=== PATIENT | male | born 1990 | race Two or more races ===

== ENCOUNTER 2025-02-11 14:43 | Emergency (ER) | payer SELFPAY ==
[2025-02-11 14:45] VITALS: BP 105/71; PULSE 106; RESP 18; TEMP 36.7; O2SAT 97
[2025-02-11 14:49] VITALS: PULSE 88; RESP 16; O2SAT 98; BMI 30.3
--- NOTE | 2025-02-11 14:49 | EKG_ITS ---
[facility] Test Date: 2025-02-11 Pat Name: CINDY FARLEY Department: Room: - Gender: Male Floor Hand: : 1990 Requested By: ED Temporary Provider Order Number: [id number] Reading MD: ED Temporary Provider Measurements Intervals [place] Rate: 105 P: 64 WV: 170 QRS: 47 QRSD: 90 T: 40 QT: 338 QTc: 447 Interpretive Statements SINUS TACHYCARDIA ABNORMAL RHYTHM ECG No previous ECG available for comparison /store/S0/[id number]/ecg/[id number].pdf
--- NOTE | 2025-02-11 15:03 | XR_ITS ---
Examination: CT brain head without contrast. 2-D sagittal coronal reconstructions Date and time of exam:February 11, 2025, 1536 hours INDICATIONS: Patient found down unconscious today head pain CTDI: vol (mGy):54 DLP: (mGycm):183 Technique: Multiple CT axial sections of the brain have been obtained, 5 mm slice thickness. Contrast has not been administered. 2-D sagittal, coronal reconstructions have been obtained Low dose protocols were performed. One or more of the following dose reduction techniques were used; automated exposure control, adjustment of the mA and/or KV according to patient size, use of iterative reconstruction technique. Findings: No significant ventricular enlargement. Intra-axial or extra-axial hemorrhage density is not seen. No mass effect or midline shift Basal cisterns are not remarkable. Fourth ventricle is midline. Cranial vault intact. Impression: Negative for acute hemorrhage, mass effect or midline shift
--- NOTE | 2025-02-11 15:03 | XR_ITS ---
Examination: CT maxillofacial, without intravenous contrast. 2-D sagittal reconstructions. 3-D reconstructions. Date and time of exam:February 11, 2025 1536 hours INDICATIONS: Patient found down unconscious today facial pain CTDI: vol (mGy):18.3 DLP: (mGycm):387 Technique: Multiple axial images of maxillofacial region, 3.0 mm slice thickness. 2-D sagittal and coronal reconstructions. 3-D reconstructions. Low dose protocols were performed. One or more of the following dose reduction techniques were used; automated exposure control, adjustment of the mA and/or KV according to patient size, use of iterative reconstruction technique. Findings: Frontal bone intact Right nasal bone fracture which appears old but clinical correlation advised Orbital rims appear intact No depression zygomatic arches Maxilla mandible intact IMPRESSION: No acute facial fracture.
--- NOTE | 2025-02-11 15:03 | XR_ITS ---
Examination: CT cervical spine without contrast 2-D sagittal reconstructions 2-D coronal reconstructions 3-D reconstructions. Exam date and time:February 11, 2025, 1536 hours INDICATIONS: Patient found down unconscious today, neck pain CTDI:vol (mGy) 17.1 DLP: (mGycm) 429 Technique: Multiple 2 mm axial sections of the cervical spine have been obtained. The coronal and sagittal reconstructions have been obtained. 3-D reconstructions have been obtained. Low dose protocols were performed. One or more of the following dose reduction techniques were used; automated exposure control, adjustment of the mA and/or KV according to patient size, use of iterative reconstruction technique. Findings: Axial sections demonstrate intact base of the skull. C1 exhibit satisfactory relationship to the odontoid. No acute cervical vertebral body fracture seen. Alignment posterior spinous processes satisfactory. Impression: No acute cervical fracture.
--- NOTE | 2025-02-11 15:06 | PD.EDALCOH ---
ED Alcohol RME/HPI General Chief Complaint: Alcohol Stated Complaint: ETOH Time Seen by Provider: 02/11/25 14:53 Arrival date/time: 02/11/25 14:43 RME / HPI RME / HPI narrative: 34-year-old male patient with significant history of drug abuse, alcohol abuse, homelessness, was brought in by EMS after patient was found on the ground with some sign of facial injury. Patient is intoxicated, talking nonsense, does not know what happened. He is alert but obviously intoxicated. Patient had abrasion to the right side of face and abrasion to the lips. No vomiting noted. No other complaints noted. Related Data Allergies Allergy/AdvReac Type Severity Reaction Status Date / Time No Known Allergies Allergy Verified 02/11/25 16:59 Review of Systems Review of Systems Narrative Review of Systems: Review of system reviewed and within normal limits except mentioned in HPI ED Exam Narrative Physical exam: VITAL SIGNS: Reviewed. GENERAL APPEARANCE: Alert and interactive, follows commands, no acute distress, unkept HEAD AND FACE: Abrasions right side of face, right lip ENT: PERRL, pink conjunctivitis, eyelid no trauma, Mucous membrane moist. NECK: Supple, nontender, no nuchal rigidity. CHEST: No tenderness, no crepitus, no paradoxical movement, no retractions. LUNGS: Clear, well ventilated, symmetric, no rales, no wheezing, no ronchi, no stridor, good breath sounds bilaterally. HEART: Regular rate, regular rhythm, no murmur, no gallops. ABDOMEN: Soft, positive bowel sounds, nondistended, no guarding, nontender, no rebound, no masses, RECTAL: Deferred. GENITAL: Deferred. NEUROLOGICAL: Gross motor function intact sensory function intact, Appropriate for age. MUSCULOSKELETAL: low back nontender, full range of motion. EXTREMITIES: Nontender, full range of motion. SKIN: Color pink, dry, no rash, no lacerations, no abrasions, no contusions. LYMPHATICS: Deferred. Course Quality Measures none Orders Category Date Time Status 24 HR Medical Restraints Q2HR Care 02/11/25 16:20 Active EKG (ED ONLY) *Do not use* NOW Care 02/11/25 14:49 Completed Jolly [Urinary Catheter] QS Care 02/11/25 17:08 Active In and Out Catheter X1 Care 02/11/25 15:[address] cervical spine wo con Stat Exams 02/11/25 15:[address] cervical spine wo con Stat Exams 02/11/25 15:[address] facial bones wo con Stat Exams 02/11/25 15:[address] head/brain wo con Stat Exams 02/11/25 15:[address] head/brain wo con Stat Exams 02/11/25 15:57 Completed EKG (ED Only) Stat Exams 02/11/25 14:49 Draft Alcohol, Blood Medical Stat Lab 02/11/25 15:14 Completed CBC [CBC] Stat Lab 02/11/25 15:14 Completed CMP [Comprehensive Metabolic Panel] Stat Lab 02/11/25 15:14 Completed Drug Screen,Urine Stat Lab 02/11/25 15:00 Completed UA, C/S IF [Urinalysis, C/S if Indicated] Stat Lab 02/11/25 15:00 Completed Diazepam Inj [Valium Inj] Med 02/11/25 15:13 Discontinued 10 mg .ROUTE .STK-MED ONE Diazepam Inj [Valium Inj] Med 02/11/25 15:15 Discontinued 10 mg IVP X1 ONE DiphenhydrAMINE INJ [Benadryl Inj] Med 02/11/25 16:50 Discontinued 50 mg IVP X1 ONE Ringers Lactated 1000 ml [Lactated Ringers] 1,000 ml Med 02/11/25 15:04 Discontinued IV 999 mls/hr Ringers Lactated 1000 ml [Lactated Ringers] 1,000 ml Med 02/11/25 17:00 Discontinued IV 999 mls/hr Ringers Lactated 1000 ml [Lactated Ringers] 1,000 ml Med 02/11/25 17:00 Discontinued IV 999 mls/hr Ziprasidone Inj [Geodon Inj] Med 02/11/25 15:22 Discontinued 20 mg IM X1 ONE Ziprasidone Inj [Geodon Inj] Med 02/11/25 16:13 Discontinued 20 mg IM X1 ONE Vital Signs Vital signs: Vital Signs Temperature 98.1 F 02/11/25 14:45 Pulse Rate 106 H 02/11/25 14:45 Respiratory Rate 18 02/11/25 14:45 Blood Pressure 105/71 02/11/25 14:45 Pulse Oximetry (%) 97 02/11/25 14:45 Oxygen Delivery Method Room Air 02/11/25 14:45 Discharge Plan Plan Patient Disposition: HOME (Self Care) Patient condition on transfer: Stable Prescriptions/Referrals Referrals: No Primary/Family,Physician [Primary Care Provider] - In 1 week Problem List Clinical Impression: Alcoholic intoxication, Methamphetamine abuse Patient/Caregiver Discharge Instructions Education Materials: Addiction: Getting Help, ED Drug Abuse, ED Alcohol Intoxication Additional Instructions: Stop drinking alcohol and doing drugs. Follow-up with your primary care. Return to the ED for any worsening symptoms or as needed. Print Language: German Stand Alone Forms: Elly Award Info., Patient Portal Info Letter Alcohol MDM Narrative MDM Narrative: 34-year-old male patient with significant history of drug abuse, alcohol abuse, homelessness, was brought in by EMS after patient was found on the ground with some sign of facial injury. Patient is intoxicated, talking nonsense, does not know what happened. He is alert but obviously intoxicated. Patient had abrasion to the right side of face and abrasion to the lips. No vomiting noted. No other complaints noted. Patient was noted to be aggressive and hitting staff. Patient was given Geodon IM Ativan IM and Benadryl also. Few minutes after patient was placed in the bed from a CT scan, patient sustained a ground-level fall. Patient hit his head on the glass door. No changes in mentation. Patient repeat CT scan of the head and neck all came back unremarkable. Patient was given 3 L of IV fluids and Jolly catheter was inserted. Care transferred to Dr. Justice for final dispositio at 1100 pm Patient data External records reviewed:: None Clinical information provided by:: patient Social determinants that could affect healthcare access:: alcohol use Patient has the following chronic illnesses:: Homelessness, How is presenting disease/condition affected by chronic disease/condition?: exacerbated by Evaluation data The following diagnostics were reviewed and interpreted by me:: lab results and radiology exam(s) Lab and/or radiology exams considered but not ordered:: None Interpretation Summary: Pending results Medications / Prescriptions Medications or Prescriptions considered but not ordered:: None Medication administrations:: Medication Administration History Discontinued Medications Diazepam (Diazepam Inj 5 Mg/Ml Vial 2 Ml) 10 mg IVP X1 ONE Stop: 02/11/25 15:16 Last Admin: 02/11/25 15:26 Dose: 10 mg Documented By: EF Diazepam (Diazepam Inj 5 Mg/Ml Vial 2 Ml) Confirm Administered Dose 10 mg .ROUTE .STK-MED ONE Stop: 02/11/25 15:14 Last Admin: 02/11/25 15:29 Dose: Not Given Documented By: EF Non-Admin Reason: Override Medication Diphenhydramine HCl (Diphenhydramine Inj 50 Mg/Ml Vial) 50 mg IVP X1 ONE Stop: 02/11/25 16:51 Last Admin: 02/11/25 17:15 Dose: 50 mg Documented By: EF Lactated Ringer's (Lactated Ringers) 1,000 mls @ 999 mls/hr IV .Q1H1M ONE Stop: 02/11/25 16:04 Last Infusion: 02/11/25 16:29 Dose: Infused Documented By: Admin: 02/11/25 15:28 Dose: 999 mls/hr Documented By: EF Lactated Ringer's (Lactated Ringers) 1,000 mls @ 999 mls/hr IV .Q1H1M ONE Stop: 02/11/25 18:00 Last Infusion: 02/11/25 18:17 Dose: Infused Documented By: Admin: 02/11/25 17:16 Dose: 999 mls/hr Documented By: EF Lactated Ringer's (Lactated Ringers) 1,000 mls @ 999 mls/hr IV .Q1H1M ONE Stop: 02/11/25 18:00 Last Infusion: 02/11/25 18:17 Dose: Infused Documented By: Admin: 02/11/25 17:16 Dose: 999 mls/hr Documented By: EF Ziprasidone (Ziprasidone Inj 20 Mg/Ml Vial (Non-Formulary)) 20 mg IM X1 ONE Stop: 02/11/25 15:23 Last Admin: 02/11/25 15:29 Dose: Not Given Documented By: EF Non-Admin Reason: Change of Condition Ziprasidone (Ziprasidone Inj 20 Mg/Ml Vial (Non-Formulary)) 20 mg IM X1 ONE Stop: 02/11/25 16:14 Last Admin: 02/11/25 16:23 Dose: 20 mg Documented By: EF Dimitris, IV fluids, Benadryl, diazepam Consultations Consultation(s) initiated? (list below): No Diagnosis Differential diagnosis alcohol: alcohol intoxication Most likely diagnosis given after review of the tests above:: Alcohol intoxication Admission Indicated Admission indicated?: not indicated Admission Request Was there a request for admission?: No Disposition Plan Disposition Plan: other (specify)
[2025-02-11 15:25] LABS: Basophils # (Auto) 0.2 Thou/mm3 (0.0-0.2); Basophils % (Auto) 2 % (0-2.5); Eosinophils # (Auto) 0.5 Thou/mm3 (0.0-0.5); Eosinophils % (Auto) 7 % (0-10); Hematocrit 41.0 % (41.0-53.0); Hemoglobin 14.2 g/dL (13.5-16.0); Immature Granulocytes Auto 0.02 Thou/mm3 (0.00-0.00); Lymphocytes # (Auto) 3.2 Thou/mm3 (1.0-4.8); Lymphocytes % (Auto) 44 % (10-50); Mean Corpuscular HGB Conc 34.6 g/dl (31.0-37.0); Mean Corpuscular Hemoglobin 29.6 pg (25.0-35.0); Mean Corpuscular Volume 85 fL (80-100); Monocytes # (Auto) 0.5 Thou/mm3 (0.0-0.8); Monocytes % (Auto) 7 % (0-12); Neutrophils # (Auto) 2.8 Thou/mm3 (1.8-7.7); Neutrophils % (Auto) 39 % (37-80); Nucleated Red Blood Cell # 0.00 Thou/mm3 (0.00-0.00); Nucleated Red Blood Cell % 0 /100 WBC (0); Platelet Count 352 Thou/mm3 (140-440); RDW Standard Deviation 40.0 fL (35.1-43.9); Red Blood Count 4.80 Miln/mm3 (4.50-5.90); White Blood Count 7.2 Thou/mm3 (3.8-10.6)
[2025-02-11] MEDS: DIAZEPAM INJ 5 MG/ML VIAL 2 ML 10 MG IVP (15:26)
[2025-02-11] MEDS: RINGERS LACTATED 1000 ML 1,000 ML 999 ML IV ×3 (15:28→17:16)
[2025-02-11 15:41] LABS: Collection Type, Urine Clean Catch; Squamous Epithelial Cell,Urine 0 /hpf (0-5); WBC,Urine 0 /hpf (0-5)
--- NOTE | 2025-02-11 15:57 | XR_ITS ---
Examination: CT brain head without contrast. 2-D sagittal coronal reconstructions Date and time of exam:February 11, 2025, 1729 hours INDICATIONS: Patient fell today with image of the head, head pain CTDI: vol (mGy):55.6 DLP: (mGycm):1309 Technique: Multiple CT axial sections of the brain have been obtained, 5 mm slice thickness. Contrast has not been administered. 2-D sagittal, coronal reconstructions have been obtained Low dose protocols were performed. One or more of the following dose reduction techniques were used; automated exposure control, adjustment of the mA and/or KV according to patient size, use of iterative reconstruction technique. Findings: No significant ventricular enlargement. Intra-axial or extra-axial hemorrhage density is not seen. No mass effect or midline shift Basal cisterns are not remarkable. Fourth ventricle is midline. Cranial vault intact. Impression: Negative for acute hemorrhage, mass effect or midline shift
--- NOTE | 2025-02-11 15:57 | XR_ITS ---
Examination: CT cervical spine without contrast 2-D sagittal reconstructions 2-D coronal reconstructions 3-D reconstructions. Exam date and time:February 11, 2025 1759 hours INDICATIONS: Patient fell today injury to the the neck, neck pain CTDI:vol (mGy) 16.3 DLP: (mGycm) 409 Technique: Multiple 2 mm axial sections of the cervical spine have been obtained. The coronal and sagittal reconstructions have been obtained. 3-D reconstructions have been obtained. Low dose protocols were performed. One or more of the following dose reduction techniques were used; automated exposure control, adjustment of the mA and/or KV according to patient size, use of iterative reconstruction technique. Findings: Axial sections demonstrate intact base of the skull. C1 exhibit satisfactory relationship to the odontoid. No acute cervical vertebral body fracture seen. Alignment posterior spinous processes satisfactory. Cervical levoscoliosis 10 degrees Impression: No acute cervical fracture.
--- NOTE | 2025-02-11 16:04 | PC.NURSE ---
PATIENT HAD RETURNED FROM CT. PLACED BACK IN RM 16. PT LIFTING HIS HEAD, REORIENTED TO PLACE AND TIME. PT LAYED HEAD BACK DOWN ON BED, LIGHTS TURNED DOWN. CURTAIN OPENED AT THIS TIME. APPROX 2 MINUTES LATER PT GOT UP OUT OF BED AND FELL HITTING HEAD ON DOOR. NEGATIVE LOC. MD AWARE AT BEDSIDE. NEW ORDERS RECEIVED. SITTER PLACED AT BEDSIDE AT THIS TIME.
[2025-02-11 16:10] LABS: Bilirubin,Urine Negative (Negative); Blood,Urine Negative (Negative); Clarity,Urine Clear (Clear/Hazy); Color,Urine Colorless (Lt Yel-Yel); Culture Indicated,Urine Not Indicated; Glucose, Urine Negative (Negative); Ketones,Urine Negative (Negative); Leukocyte Esterase,Urine Negative (Negative); Nitrite,Urine Negative (Negative); PH,Urine 5.5 (5.0-7.0); Protein,Urine Negative (Neg - Trace); RBC,Urine < 1 /hpf (0-3); Specific Gravity,Urine 1.003 (1.001-1.035); Urobilinogen,Urine Negative mg/dL (0.0-1.0)
[2025-02-11 16:12] LABS: Alanine Aminotransferase 15 U/L (10-49); Albumin, Serum 4.3 gm/dL (3.5-5.0); Albumin/Globulin Ratio 1.3 (1.2-2.2); Alkaline Phosphatase 107 U/L (46-116); Anion Gap 14 (7-16); Aspartate Amino Transferase 20 U/L (0-34); BUN/Creatinine Ratio 8 Ratio (12-20); Bilirubin,Total 0.2 mg/dL (0.3-1.2); Blood Urea Nitrogen 8 mg/dL (9-23); Calcium 8.8 mg/dL (8.3-10.6); Calcium (Corrected) 8.8 mg/dL (8.5-10.1); Carbon Dioxide 19.7 mMol/L (20.0-31.0); Chloride 106 mMol/L (98-107); Creatinine (Component) 1.0 mg/dL (0.6-1.3); Estimated Creatinine Clearance 111.6 mL/min (>60); Globulin 3.4 gm/dL (2.3-3.5); Glucose 135 mg/dL (74-106); Osmolality,Calculated 279 (275-295); Potassium 3.2 mMol/L (3.4-5.1); Sodium 140 mMol/L (136-145); Total Protein 7.7 gm/dL (5.7-8.2); eGFR > 60 See Note
[2025-02-11] MEDS: ZIPRASIDONE INJ 20 MG/ML VIAL (NON-FORMULARY) IM (16:23)
[2025-02-11 16:25] LABS: Amphetamine/Methamp Scrn,U Positive (Negative); Barbiturate Screen,Urine Negative (Negative); Benzodiazepines Screen,Urine Negative (Negative); Benzoylecgonine Screen, Ur Negative (Negative); Fentanyl Screen,Urine Negative (Negative); Opiate Screen,Urine Negative (Negative); THC Screen,Urine Negative (Negative)
[2025-02-11 16:38] LABS: Alcohol, Blood Medical 436.8 mg/dL (0-10.0)
[2025-02-11 17:00] VITALS: BP 102/60; PULSE 89; RESP 19; TEMP 36.8; O2SAT 98
[2025-02-11 21:23] VITALS: BP 136/97; PULSE 92; RESP 18; TEMP 36.4; O2SAT 100
--- NOTE | 2025-02-11 23:14 | PD.EDADDENDU ---
Emergency Room Addendum Addendum Narrative: 2300: Care assumed from Puma Boone NP. Past medical, surgical, social and family history reviewed. Vitals and home medications reviewed. Results and treatment plan discussed. I will assume the care of the patient at this time and will follow the patient, pending MTF. Please refer to the emergency department record for history and examination from initial visit. The following addendum documentation note is intended to reflect any pending information, findings, or radiology results not included in the patient?s initial chart. 2343: Patient is alert, awake, oriented x4. He is communicating and answering questions appropriately, and is stable to be discharged home.
== END 2025-02-11 23:55 | disposition home or self-care (01) ==
PROVIDERS: Nurse Practitioner Family; Emergency Provider Family Medicine
DX: F10.229 Alcohol dependence with intoxication, unspecified (principal); F15.10 Other stimulant abuse, uncomplicated; S00.81XA Abrasion of other part of head, initial encounter; S00.511A Abrasion of lip, initial encounter; S19.9XXA Unspecified injury of neck, initial encounter; R00.0 Tachycardia, unspecified; Y90.8 Blood alcohol level of 240 mg/100 ml or more; Z59.00 Homelessness unspecified
CPT/HCPCS: 51702; 36415; 70450; 70486; 72125; 80053; 80307; 80320; 81001; 85025; 93005; 96361; 96372; 96374; 96375; 99283; J1200; J3360; J3486; J7120; G0480